=== PATIENT | male | born 2005 | race Caucasian/White ===

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

== ENCOUNTER 2023-12-30 09:14 | Emergency (ER) | payer BC, MEDICAID ==
[~2023-12-30] VITALS: Ht 172.7 cm; Wt 86.4 kg
[~2023-12-30 09:14] MED LIST: ASEN5TAB SL; CLOB10TA; DIVA500T9 PO; LAMO25TA94 PO; LEVO330T6
[2023-12-30 09:22] VITALS: TEMP 98.2
[2023-12-30] MEDS: divalproex sodium 500mg tablet.DR PO STA (10:16)
[2023-12-30] MEDS: LORazepam 1 MG tablet PO ONE (10:16)
[2023-12-30 10:36] LABS: BASOPHILS % (AUTO) 0.3 % (0-1); EOSINOPHILS % (AUTO) 0.6 % (0-6); HEMATOCRIT 42.9 % (42.0-52.0); HEMOGLOBIN 14.3 g/dl (14.0-17.9); LYMPHOCYTES # (AUTO) 1.9 X10'3 (1.1-4.8); LYMPHOCYTES % (AUTO) 40.2 % (21-51); MEAN CORPUSCULAR HEMOGLOBIN 29.8 PG (27.0-31.0); MEAN CORPUSCULAR HGB CONC 33.4 g/dL (33.0-36.5); MEAN CORPUSCULAR VOLUME 89.1 FL (78-98); MEAN PLATELET VOLUME 7.3 FL (7.4-10.4); MONOCYTES # (AUTO) 0.4 X10'3 (0-0.9); MONOCYTES % (AUTO) 9.2 % (2-12); NEUTROPHILS # (AUTO) 2.4 X10'3 (1.8-7.7); NEUTROPHILS % (AUTO) 49.7 % (42-75); PLATELET COUNT 225 X10'3 (140-440); RED BLOOD COUNT 4.81 X10'6 (4.70-6.10); RED CELL DISTRIBUTION WIDTH 13.8 % (11.5-14.5); WHITE BLOOD COUNT 4.8 X10'3 (4.5-11.0)
[2023-12-30 10:45] LABS: ALBUMIN 3.6 G/DL (3.4-5.0); ANION GAP 7 (8-16); BLOOD UREA NITROGEN 16 MG/DL (7-18); BUN/CREATININE RATIO 23.2 (10.0-20.0); CALCIUM 9.3 MG/DL (8.5-10.1); CHLORIDE 105 MMOL/L (99-107); CREATININE 0.69 MG/DL (0.60-1.10); GLUCOSE 93 MG/DL (70-104); POTASSIUM 4.4 MMOL/L (3.5-5.1); SODIUM 141 MMOL/L (135-145); eCRCL 165 ML/MIN; eGFR > 90 ML/MIN
[2023-12-30] MEDS ORDERED: ZONI100C87 PO (12:10)
[2023-12-30 12:25] VITALS: BP 126/70; PULSE 74; RESP 14; O2SAT 99
[2023-12-30 12:29] LABS: VALPROATE 64 UG/ML (50-100)
== END 2023-12-30 12:26 | disposition home or self-care (01) ==
LOC: ER 09:15
DX: G40.909 Epilepsy, unspecified, not intractable, without status epilepticus (principal); Z79.899 Other long term (current) drug therapy
CPT/HCPCS: 36415; 80048; 80164; 82542; 85025; 99284

== ENCOUNTER 2024-01-20 08:03 | Emergency (ER) | payer BC, MEDICAID ==
[~2024-01-20] VITALS: Ht 171.4 cm; Wt 87.3 kg
[~2024-01-20 08:03] MED LIST changes: +ZONI100C87 PO
[2024-01-20] MEDS: lamoTRIgine 100mg tablet PO ONE (08:48)
[2024-01-20] MEDS: divalproex sod 250mg ER (24-hour) tablet PO ONE (08:48)
[2024-01-20] MEDS: LACOSAMIDE 50 MG TABLET PO ONE (09:05)
[2024-01-20 10:15] VITALS: BP 113/55; PULSE 77; RESP 13; TEMP 98.6; O2SAT 97
== END 2024-01-20 10:33 ==
LOC: ER 08:04
DX: G40.909 Epilepsy, unspecified, not intractable, without status epilepticus (principal); Z79.899 Other long term (current) drug therapy; Z79.1 Long term (current) use of non-steroidal anti-inflammatories (NSAID)
CPT/HCPCS: 70450; 99285

== ENCOUNTER 2024-04-04 21:18 | Emergency (ER) | payer BC, MEDICAID ==
[~2024-04-04] VITALS: Ht 177.8 cm; Wt 83.1 kg
[2024-04-04 21:30] VITALS: TEMP 98.1
[2024-04-04] MEDS ORDERED: levetiracetam inj 1,000 MG in normal saline 100ml IV soln 100 ML IV ONE (22:55)
[2024-04-04] MEDS: levetiracetam-NS 1000mg/100ml 100 ML IV ONE (23:18)
[2024-04-04 23:35] LABS: BASOPHILS % (AUTO) 0.2 % (0-1); EOSINOPHILS # (AUTO) 0.1 X10'3 (0-0.9); EOSINOPHILS % (AUTO) 1.1 % (0-6); HEMATOCRIT 43.3 % (42.0-52.0); HEMOGLOBIN 14.8 g/dl (14.0-17.9); MEAN CORPUSCULAR HEMOGLOBIN 30.8 PG (27.0-31.0); MEAN CORPUSCULAR HGB CONC 34.3 g/dL (33.0-36.5); MEAN CORPUSCULAR VOLUME 89.7 FL (78-98); MEAN PLATELET VOLUME 7.9 FL (7.4-10.4); MONOCYTES # (AUTO) 0.6 X10'3 (0-0.9); MONOCYTES % (AUTO) 8.9 % (2-12); NEUTROPHILS # (AUTO) 2.7 X10'3 (1.8-7.7); NEUTROPHILS % (AUTO) 42.8 % (42-75); PLATELET COUNT 209 X10'3 (140-440); RED BLOOD COUNT 4.82 X10'6 (4.70-6.10); RED CELL DISTRIBUTION WIDTH 14.5 % (11.5-14.5); WHITE BLOOD COUNT 6.3 X10'3 (4.5-11.0)
[2024-04-04 23:43] LABS: APTT 29 SECONDS (22-32); INR 1.2 INR; PROTHROMBIN TIME 12.6 SECONDS (9.0-12.0)
[2024-04-04 23:57] LABS: ALANINE AMINOTRANSFERASE 65 U/L (12-78); ALBUMIN 3.8 G/DL (3.4-5.0); ALBUMIN/GLOBULIN RATIO 1.3 (1.1-1.5); ALKALINE PHOSPHATASE 78 IU/L (20-180); ANION GAP 11 (8-16); ASPARTATE AMINO TRANSFERASE 51 U/L (10-37); BILIRUBIN,TOTAL 0.6 MG/DL (0.1-1.0); BLOOD UREA NITROGEN 13 MG/DL (7-18); BUN/CREATININE RATIO 12.9 (10.0-20.0); CALCIUM 9.1 MG/DL (8.5-10.1); CHLORIDE 110 MMOL/L (99-107); CREATININE 1.01 MG/DL (0.60-1.10); GLUCOSE 95 MG/DL (70-104); POTASSIUM 3.2 MMOL/L (3.5-5.1); SODIUM 144 MMOL/L (135-145); TOTAL PROTEIN 6.7 G/DL (6.4-8.2); eCRCL 120 ML/MIN; eGFR > 90 ML/MIN
[2024-04-04 23:59] LABS: CREATINE KINASE 148 U/L (39-308); FREE T4 (FREE THYROXINE) 1.04 NG/DL (0.73-1.40); THYROID STIMULATING HORMONE 4.42 ulU/ml (0.34-4.50)
[2024-04-05 00:19] VITALS: BP 111/88; PULSE 78; RESP 16; O2SAT 98
== END 2024-04-05 00:18 | disposition home or self-care (01) ==
LOC: ER 21:18
DX: G40.802 Other epilepsy, not intractable, without status epilepticus (principal); F41.9 Anxiety disorder, unspecified; F32.A Depression, unspecified; Z79.899 Other long term (current) drug therapy
CPT/HCPCS: 36415; 80053; 82550; 83605; 84439; 84443; 84484; 85025; 85610; 85730; 93005; 96365; 99284; J1953; A6449

== ENCOUNTER 2024-04-14 16:41 | Emergency (ER) | payer BC, MEDICAID ==
[~2024-04-14] VITALS: Ht 170.2 cm; Wt 78.0 kg
[2024-04-14 17:25] LABS: BASOPHILS % (AUTO) 0.2 % (0-1); EOSINOPHILS % (AUTO) 0.4 % (0-6); HEMATOCRIT 43.4 % (42.0-52.0); HEMOGLOBIN 14.7 g/dl (14.0-17.9); LYMPHOCYTES % (AUTO) 34.3 % (21-51); MEAN CORPUSCULAR HEMOGLOBIN 30.3 PG (27.0-31.0); MEAN CORPUSCULAR HGB CONC 33.8 g/dL (33.0-36.5); MEAN CORPUSCULAR VOLUME 89.7 FL (78-98); MEAN PLATELET VOLUME 7.9 FL (7.4-10.4); MONOCYTES # (AUTO) 0.6 X10'3 (0-0.9); NEUTROPHILS # (AUTO) 3.1 X10'3 (1.8-7.7); NEUTROPHILS % (AUTO) 55.1 % (42-75); PLATELET COUNT 162 X10'3 (140-440); RED BLOOD COUNT 4.84 X10'6 (4.70-6.10); RED CELL DISTRIBUTION WIDTH 14.4 % (11.5-14.5); WHITE BLOOD COUNT 5.7 X10'3 (4.5-11.0)
[2024-04-14 17:46] LABS: ALANINE AMINOTRANSFERASE 139 U/L (12-78); ALBUMIN/GLOBULIN RATIO 1.5 (1.1-1.5); ALKALINE PHOSPHATASE 86 IU/L (20-180); ASPARTATE AMINO TRANSFERASE 102 U/L (10-37); BILIRUBIN,TOTAL 0.5 MG/DL (0.1-1.0); BLOOD UREA NITROGEN 14 MG/DL (7-18); BUN/CREATININE RATIO 12.4 (10.0-20.0); CALCIUM 9.1 MG/DL (8.5-10.1); CREATININE 1.13 MG/DL (0.60-1.10); GLUCOSE 88 MG/DL (70-104); TOTAL CARBON DIOXIDE 22.1 MMOL/L (24-32); TOTAL PROTEIN 6.6 G/DL (6.4-8.2); eCRCL 97 ML/MIN; eGFR 83 ML/MIN
[2024-04-14 17:47] LABS: ANION GAP 13 (8-16); CHLORIDE 108 MMOL/L (99-107); CREATINE KINASE 152 U/L (39-308); POTASSIUM 3.5 MMOL/L (3.5-5.1); SODIUM 143 MMOL/L (135-145)
[2024-04-14 17:54] VITALS: BP 129/82; PULSE 87; RESP 17; TEMP 97.9; O2SAT 100
== END 2024-04-14 17:45 | disposition home or self-care (01) ==
LOC: ER 16:42
DX: G40.909 Epilepsy, unspecified, not intractable, without status epilepticus (principal); F41.9 Anxiety disorder, unspecified; F32.A Depression, unspecified; Z79.899 Other long term (current) drug therapy; Z79.1 Long term (current) use of non-steroidal anti-inflammatories (NSAID)
CPT/HCPCS: 36415; 80053; 82550; 83605; 85025; 93005; 99284

== ENCOUNTER 2024-04-19 18:29 | Emergency (ER) | payer BC, MEDICAID ==
[~2024-04-19] VITALS: Ht 180.3 cm; Wt 91.0 kg
[2024-04-19] MEDS: divalproex sodium 500mg tablet.DR PO ONE (20:23)
[2024-04-19 20:41] VITALS: BP 107/60; PULSE 69; RESP 18; TEMP 97.9; O2SAT 97
== END 2024-04-19 20:44 | disposition home or self-care (01) ==
LOC: ER 18:30
DX: G40.802 Other epilepsy, not intractable, without status epilepticus (principal); F41.9 Anxiety disorder, unspecified; F32.A Depression, unspecified; Z79.899 Other long term (current) drug therapy
CPT/HCPCS: 99284

== ENCOUNTER 2024-04-23 23:19 | Emergency (ER) | payer BC, MEDICAID ==
[~2024-04-23] VITALS: Ht 172.7 cm; Wt 84.1 kg
[2024-04-23 23:19] VITALS: BP 119/69; PULSE 85; RESP 14; TEMP 98; O2SAT 98
[2024-04-23 23:46] LABS: BASOPHILS % (AUTO) 0.5 % (0-1); EOSINOPHILS % (AUTO) 0.3 % (0-6); HEMATOCRIT 45.7 % (42.0-52.0); HEMOGLOBIN 15.3 g/dl (14.0-17.9); LYMPHOCYTES # (AUTO) 3.6 X10'3 (1.1-4.8); LYMPHOCYTES % (AUTO) 49.2 % (21-51); MEAN CORPUSCULAR HEMOGLOBIN 29.7 PG (27.0-31.0); MEAN CORPUSCULAR HGB CONC 33.4 g/dL (33.0-36.5); MEAN CORPUSCULAR VOLUME 88.9 FL (78-98); MEAN PLATELET VOLUME 7.6 FL (7.4-10.4); MONOCYTES # (AUTO) 0.7 X10'3 (0-0.9); MONOCYTES % (AUTO) 10.3 % (2-12); NEUTROPHILS # (AUTO) 2.9 X10'3 (1.8-7.7); NEUTROPHILS % (AUTO) 39.7 % (42-75); PLATELET COUNT 178 X10'3 (140-440); RED BLOOD COUNT 5.14 X10'6 (4.70-6.10); WHITE BLOOD COUNT 7.3 X10'3 (4.5-11.0)
[2024-04-23 23:48] LABS: BILIRUBIN,URINE NEGATIVE (Neg); CLARITY,URINE CLEAR (Clear); COLOR,URINE YELLOW (Yellow); GLUCOSE, URINE NEGATIVE (Neg); KETONES,URINE NEGATIVE (Neg); LEUKOCYTE ESTERASE ,URINE NEGATIVE (Neg); NITRITES, URINE NEGATIVE (Neg); OCCULT BLOOD,URINE NEGATIVE (Neg); PROTEIN,URINE NEGATIVE (Neg); UROBILINOGEN,URINE 0.2 E.U/dL (0.2-1.0)
[2024-04-24] MEDS ORDERED: ZIPR20CA12 PO (00:04)
[2024-04-24] MEDS ORDERED: CANN100S PO (00:04)
[2024-04-24] MEDS ORDERED: LEVO330T7 PO (00:04)
[2024-04-24] MEDS ORDERED: ZIPR40CA14 PO (00:04)
[2024-04-24] MEDS ORDERED: DIAZ20SP NAS (00:04)
[2024-04-24] MEDS ORDERED: CHOL100017 PO (00:04)
[2024-04-24] MEDS ORDERED: OLAN5TAB29 PO (00:04)
[2024-04-24] MEDS ORDERED: MINO50CA5 PO (00:04)
[2024-04-24] MEDS ORDERED: CLOB10TA5 PO (00:04)
[2024-04-24] MEDS ORDERED: DIVA500T39 PO (00:04)
[2024-04-24] MEDS ORDERED: ZONI100C42 PO (00:04)
[2024-04-24] MEDS ORDERED: LAMO200T51 PO (00:04)
[2024-04-24 00:07] LABS: UA COLLECTION TYPE CLN CATCH MIDSTREAM
[2024-04-24 00:08] LABS: ALBUMIN 4.1 G/DL (3.4-5.0); ANION GAP 8 (8-16); BLOOD UREA NITROGEN 15 MG/DL (7-18); CALCIUM 9.6 MG/DL (8.5-10.1); CHLORIDE 107 MMOL/L (99-107); CREATININE 0.88 MG/DL (0.60-1.10); ETHANOL < 10 MG/DL (<10); GLUCOSE 94 MG/DL (70-104); POTASSIUM 4.2 MMOL/L (3.5-5.1); SODIUM 141 MMOL/L (135-145); THYROID STIMULATING HORMONE 5.85 ulU/ml (0.34-4.50); TOTAL CARBON DIOXIDE 25.7 MMOL/L (24-32); eCRCL 130 ML/MIN; eGFR > 90 ML/MIN
[2024-04-24 00:09] LABS: URINE AMPHETAMINE SCREEN NEGATIVE (Neg); URINE BARBITUATE SCREEN NEGATIVE (Neg); URINE BENZODIAZEPINES SCREEN POSITIVE (Neg); URINE CANNABINOID SCREEN POSITIVE (Neg); URINE COCAINE SCREEN NEGATIVE (Neg); URINE METHADONE SCREEN NEGATIVE (Neg); URINE OPIATE SCREEN NEGATIVE (Neg); URINE PHENCYCLIDINE SCREEN NEGATIVE (Neg)
[2024-04-24] MEDS ORDERED: LACO100T4 PO (00:13)
[2024-04-24] MEDS ORDERED: CHOL100025 PO (08:02)
[2024-04-24] MEDS ORDERED: DIAZEPAM 20 MG NAS PRN (08:40)
[2024-04-24] MEDS: ziprasidone 20mg capsule PO SCH (09:23)
[2024-04-24] MEDS: divalproex sodium 500mg tablet.DR PO SCH (09:23)
[2024-04-24] MEDS: OLANZapine 5mg rapidly disint. tablet PO SCH (09:23)
[2024-04-24] MEDS ORDERED: LEVOCARNITINE 330 MG PO SCH (20:00)
[2024-04-24] MEDS ORDERED: LAMOTRIGINE 200 MG PO SCH (20:00)
[2024-04-24] MEDS ORDERED: ziprasidone 20mg capsule PO SCH (21:00)
[2024-04-24] MEDS ORDERED: zonisamide 100mg capsule PO SCH (21:00)
[2024-04-25] MEDS ORDERED: CLOBAZAM PO SCH (08:00)
[2024-04-25] MEDS ORDERED: MINOCYCLINE 50 MG CAP PO SCH (08:00)
[2024-04-25] MEDS ORDERED: cholecalciferol (vitamin D3) 1,000 unit (25mcg) tablet PO SCH (08:00)
== END 2024-04-24 16:00 | disposition home or self-care (01) ==
LOC: ER 23:20
DX: R62.59 Other lack of expected normal physiological development in childhood (principal); R45.851 Suicidal ideations; F41.9 Anxiety disorder, unspecified; F32.A Depression, unspecified; Z20.822 Contact with and (suspected) exposure to COVID-19; Z79.899 Other long term (current) drug therapy
CPT/HCPCS: 36415; 80048; 80305; 80320; 81003; 84443; 85025; 87811; 99285

== ENCOUNTER 2024-05-12 15:28 | Emergency (ER) | payer BC, MEDICAID ==
[~2024-05-12] VITALS: Ht 175.3 cm; Wt 105.0 kg
[~2024-05-12 15:28] MED LIST changes: -ASEN5TAB SL; +CANN100S PO; +CHOL100025 PO; -CLOB10TA; +CLOB10TA5 PO; +DIAZ20SP NAS; +DIVA500T39 PO; -DIVA500T9 PO; +LAMO200T51 PO; -LAMO25TA94 PO; -LEVO330T6; +LEVO330T7 PO; +MINO50CA5 PO; +OLAN5TAB29 PO; +ZIPR20CA12 PO; +ZIPR40CA14 PO; +ZONI100C42 PO; -ZONI100C87 PO
[2024-05-12 16:06] LABS: BASOPHILS % (AUTO) 0.5 % (0-1); EOSINOPHILS % (AUTO) 0.5 % (0-6); HEMATOCRIT 42.6 % (42.0-52.0); HEMOGLOBIN 14.1 g/dl (14.0-17.9); LYMPHOCYTES # (AUTO) 1.8 X10'3 (1.1-4.8); LYMPHOCYTES % (AUTO) 36.7 % (21-51); MEAN CORPUSCULAR HEMOGLOBIN 30.2 PG (27.0-31.0); MEAN CORPUSCULAR HGB CONC 33.2 g/dL (33.0-36.5); MEAN CORPUSCULAR VOLUME 90.8 FL (78-98); MEAN PLATELET VOLUME 7.2 FL (7.4-10.4); MONOCYTES # (AUTO) 0.4 X10'3 (0-0.9); MONOCYTES % (AUTO) 8.8 % (2-12); NEUTROPHILS # (AUTO) 2.7 X10'3 (1.8-7.7); NEUTROPHILS % (AUTO) 53.5 % (42-75); PLATELET COUNT 185 X10'3 (140-440); RED BLOOD COUNT 4.69 X10'6 (4.70-6.10); RED CELL DISTRIBUTION WIDTH 14.4 % (11.5-14.5)
[2024-05-12 16:27] LABS: ALBUMIN 3.9 G/DL (3.4-5.0); ANION GAP 8 (8-16); BLOOD UREA NITROGEN 11 MG/DL (7-18); BUN/CREATININE RATIO 11.1 (10.0-20.0); CALCIUM 9.4 MG/DL (8.5-10.1); CHLORIDE 107 MMOL/L (99-107); CREATININE 0.99 MG/DL (0.60-1.10); GLUCOSE 87 MG/DL (70-104); SODIUM 142 MMOL/L (135-145); TOTAL CARBON DIOXIDE 27.2 MMOL/L (24-32); eCRCL 119 ML/MIN; eGFR > 90 ML/MIN
[2024-05-12 16:31] LABS: ETHANOL < 10 MG/DL (<10)
[2024-05-12 16:42] LABS: BILIRUBIN,URINE NEGATIVE (Neg); CLARITY,URINE CLEAR (Clear); COLOR,URINE YELLOW (Yellow); GLUCOSE, URINE NEGATIVE (Neg); KETONES,URINE NEGATIVE (Neg); LEUKOCYTE ESTERASE ,URINE NEGATIVE (Neg); NITRITES, URINE NEGATIVE (Neg); OCCULT BLOOD,URINE NEGATIVE (Neg); PROTEIN,URINE TRACE mg/dl (Neg); UROBILINOGEN,URINE 0.2 E.U/dL (0.2-1.0)
[2024-05-12 16:51] LABS: UA COLLECTION TYPE CLN CATCH MIDSTREAM
[2024-05-12 16:53] LABS: URINE AMPHETAMINE SCREEN NEGATIVE (Neg); URINE BARBITUATE SCREEN NEGATIVE (Neg); URINE BENZODIAZEPINES SCREEN POSITIVE (Neg); URINE CANNABINOID SCREEN POSITIVE (Neg); URINE COCAINE SCREEN NEGATIVE (Neg); URINE METHADONE SCREEN NEGATIVE (Neg); URINE OPIATE SCREEN NEGATIVE (Neg); URINE PHENCYCLIDINE SCREEN NEGATIVE (Neg)
[2024-05-12 16:55] LABS: MUCUS STRANDS FEW /LPF (Neg); SQUAMOUS EPITHELIAL CELL,UR FEW /LPF (FEW)
[2024-05-12 16:56] LABS: BACTERIA,URINE FEW /HPF (Neg)
[2024-05-12 16:57] LABS: RBC,URINE 0-2 /HPF (0-2); WBC,URINE 0-4 /HPF (0-4)
[2024-05-12] MEDS ORDERED: LAMO150T6 PO (17:44)
[2024-05-12] MEDS ORDERED: LACO100T2 PO (17:44)
[2024-05-12] MEDS ORDERED: CHOL100046 PO (17:44)
[2024-05-12] MEDS: divalproex sodium 500mg tablet.DR PO SCH (19:17)
[2024-05-12] MEDS: LEVOCARNITINE 330 MG PO SCH ×2 (20:00→21:15)
[2024-05-12] MEDS ORDERED: lamoTRIgine 25mg tablet PO SCH (20:00)
[2024-05-12] MEDS: OLANZapine 5mg rapidly disint. tablet PO ONE (20:24)
[2024-05-12] MEDS: lamoTRIgine 100mg tablet PO SCH (20:28)
[2024-05-12] MEDS: lamoTRIgine 25mg tablet PO SCH (20:28)
[2024-05-12] MEDS: ziprasidone 20mg capsule PO SCH (20:32)
[2024-05-12] MEDS: LACOSAMIDE 50 MG TABLET PO SCH (21:14)
[2024-05-13 06:07] VITALS: BP 122/82; PULSE 92; RESP 18; TEMP 98.6; O2SAT 98
[2024-05-13] MEDS: CLOBAZAM PO SCH (08:00)
[2024-05-13] MEDS: MINOCYCLINE 50 MG PO SCH (08:00)
[2024-05-13] MEDS: ziprasidone 20mg capsule PO SCH (08:59)
[2024-05-13] MEDS ORDERED: OLANZapine 5mg rapidly disint. tablet PO SCH (16:00)
== END 2024-05-13 09:43 | disposition home or self-care (01) ==
LOC: ER 15:29
DX: R45.851 Suicidal ideations (principal); Z20.822 Contact with and (suspected) exposure to COVID-19; F41.9 Anxiety disorder, unspecified; F32.A Depression, unspecified; Z79.899 Other long term (current) drug therapy
CPT/HCPCS: 36415; 80048; 80305; 80320; 81001; 84443; 85025; 87811; 99285